=== PATIENT | female | born 1970 | race Caucasian/White ===

== ENCOUNTER 2021-08-23 08:51 | Outpatient (CLI) | payer OTHER | END 2021-08-23 08:52 | disposition home or self-care (01) | LOC: CSHLAB 08:51 | PROVIDERS: ATTEND Internal Medicine Gastroenterology | DX: Z20.822 Contact with and (suspected) exposure to COVID-19 (principal); Z12.11 Encounter for screening for malignant neoplasm of colon | CPT/HCPCS: U0003; U0005 ==

== ENCOUNTER 2021-08-26 10:28 | Day surgery (SDC) | payer OTHER ==
[2021-08-24 14:03] VITALS: BMI 23.1
[2021-08-26] MEDS ORDERED: Lidocaine 1% MPF 2 ML VIAL ONE (10:46)
[2021-08-26] MEDS ORDERED: PROPOFOL 20 ML ONE ×3 (12:13→12:47)
== END 2021-08-26 13:30 | disposition home or self-care (01) ==
LOC: CSHSDC 10:28
PROVIDERS: ATTEND Internal Medicine Gastroenterology
PROC: 0DJD8ZZ Inspection of Lower Intestinal Tract, Via Natural or Artificial Opening Endoscopic (ICD-10-PCS; principal; 2021-08-26)
DX: Z12.11 Encounter for screening for malignant neoplasm of colon (principal); K62.89 Other specified diseases of anus and rectum; K64.9 Unspecified hemorrhoids; Q43.8 Other specified congenital malformations of intestine; F17.210 Nicotine dependence, cigarettes, uncomplicated; E78.5 Hyperlipidemia, unspecified; J44.9 Chronic obstructive pulmonary disease, unspecified; Z80.0 Family history of malignant neoplasm of digestive organs; Z79.899 Other long term (current) drug therapy
CPT/HCPCS: J2704